=== PATIENT | female | born 1990 | race African-American/Black ===

== ENCOUNTER 2024-05-21 22:36 | Emergency (ER) | payer SELFPAY ==
[~2024-05-21] VITALS: Ht 157.5 cm; Wt 107.0 kg
[2024-05-21 23:07] VITALS: TEMP 98.8; O2SAT 100
[2024-05-22 00:45] VITALS: BP 108/69; PULSE 66; RESP 18
[2024-05-22] MEDS: HYDROCODONE/ACETAMINOPHEN 5/325MG TABLET PO ONE (00:45)
[2024-05-22] MEDS ORDERED: LIDO700A15 TP (01:12)
[2024-05-22] MEDS ORDERED: ACET-2708 MT (01:12)
== END 2024-05-22 03:34 | disposition home or self-care (01) ==
LOC: ER 22:47
DX: M25.562 Pain in left knee (principal); J45.909 Unspecified asthma, uncomplicated; Z91.048 Other nonmedicinal substance allergy status; Z88.5 Allergy status to narcotic agent; Z91.018 Allergy to other foods; Z88.6 Allergy status to analgesic agent; Z86.39 Personal history of other endocrine, nutritional and metabolic disease; W05.1XXA Fall from non-moving nonmotorized scooter, initial encounter; Y93.89 Activity, other specified; Y92.89 Other specified places as the place of occurrence of the external cause; Y99.8 Other external cause status
CPT/HCPCS: 73560; 99283; Z7610 ×2